=== PATIENT | female | born 1990 | race Caucasian/White ===

== ENCOUNTER → 2020-03-12 14:27 | Outpatient (CLI) | payer OTHER, SELFPAY ==
[2020-03-14 19:07] LABS: AFP, Serum 48.7 ng/mL (.); Calc Gestational Age Ultrasound (.); Estriol, Free 2.06 ng/mL (.); Inhibin A, Dimeric 94.01 pg/mL (.); Inhibin A, MoM 0.51 (.); Maternal Ethnicity Caucasian (.); Maternal Weight 128 lbs (.); Number of Fetuses No (.); OSBR Risk 1 IN 10000 (.); Results Report (.); Test Results *Screen Negative* (.); hCG, MoM 0.52 (.); hCG, Serum 15917 mIU/mL (.)
== END ==
PROVIDERS: PCP Family Medicine; Referring Provider Family Medicine; Visit Provider Family Medicine
DX: Z34.82 Encounter for supervision of other normal pregnancy, second trimester (principal); Z3A.18 18 weeks gestation of pregnancy
CPT/HCPCS: 36415; 82105; 82677; 84702; 86336

== ENCOUNTER → 2020-03-26 11:54 | Outpatient (CLI) | payer OTHER, SELFPAY ==
--- NOTE | 2020-03-26 11:55 | DI.US.S_ITS ---
PROCEDURE: US OB >= 14 WEEKS FETUS INDICATIONS: anatomic survey OUTSIDE/PRIOR DATING DATA: Last menstrual period (LMP): Unknown . LMP-based estimated date of delivery (KAVITA): Unknown . First dating scan (date and location): 03/26/2020 . Estimated date of delivery (KAVITA) from first dating scan: 08/10/2020 . TECHNIQUE: Real-time scanning was performed of the fetus, with image documentation and biometric measurements. Endovaginal scanning: Not performed COMPARISON: None. FINDINGS: General: A single living intrauterine gestation is present. Presentation: Variable, vertex and transverse. Placenta: Placental position is fundal and anterior, without previa. Amniotic fluid index: 12.1 cm, normal range is 5-24 cm. heart rate: 150 beats per minute. Maternal cervical canal: 5.0 cm long. Normal lower limit is 2.5 cm. biometrics: Biparietal diameter: 4.8 centimeters, 20 weeks 4 days Head circumference: 17.9 centimeters, 20 weeks 2 days Abdominal circumference: 16.1 centimeters, 21 weeks 2 days Femur length: 3.1 centimeters, 19 weeks 5 days Estimated gestational age from initial scan: not applicable. Composite gestational age from present scan: 20 weeks 3 days Estimated weight: 360 grams, within normal limits Anatomic survey: Neuro: Ventricles are non-dilated at less than 10 mm. Cisterna magna is normal at 3-11 mm. Cerebellum is normal in size and morphology. Nuchal skin fold: Normal at less than 6 mm between 14-21 weeks gestational age. Face: Nose and lips, facial profile are normal. Spine: No evidence for spina bifida. Heart: 4-chambered heart is present, with normal ventricular outflow tracts. Diaphragm: Diaphragm is intact. Stomach: Left-sided stomach is present. Kidneys: No hydronephrosis. Normal is less than 5 mm in 2nd trimester, less than 7 mm in 3rd trimester. Cord: 3-vessel cord has orthotopic insertion. Bladder: Normal in size. Extremities: All 4 extremities identified. IMPRESSION: Normal anatomic survey. Dictated by: Philip Ch M.D. on 03/26/2020 at 14:53 Approved by: Philip Ch M.D. on 03/26/2020 at 14:58
== END ==
PROVIDERS: PCP Family Medicine; Referring Provider Family Medicine; Visit Provider Family Medicine
DX: Z34.82 Encounter for supervision of other normal pregnancy, second trimester (principal); Z3A.20 20 weeks gestation of pregnancy
CPT/HCPCS: 76811

== ENCOUNTER → 2020-05-10 09:44 | Outpatient (CLI) | payer OTHER, SELFPAY ==
[2020-05-10 11:07] LABS: Hematocrit 30.1 % (36-46); Hemoglobin 9.8 g/dL (12.0-16.0)
[2020-05-10 11:51] LABS: GTT (PREG) 1 Hour PP 50gm Dose 168 mg/dL (76-139)
== END ==
PROVIDERS: PCP Family Medicine; Referring Provider Family Medicine; Visit Provider Family Medicine
DX: Z34.82 Encounter for supervision of other normal pregnancy, second trimester (principal); Z3A.26 26 weeks gestation of pregnancy
CPT/HCPCS: 36415; 82950; 85014; 85018

== ENCOUNTER → 2020-05-16 06:56 | Outpatient (CLI) | payer OTHER, SELFPAY ==
[2020-05-16 09:31] LABS: Glucose Fasting Gestational 71 mg/dL (76-95)
[2020-05-16 09:31] LABS: Glucose 1 Hour Gest 102 mg/dL (76-180)
[2020-05-16 10:23] LABS: Glucose Tol Interp,Gestational INTERPRETATION
[2020-05-16 10:44] LABS: Glucose 2 Hour Gest 97 mg/dL (76-155)
[2020-05-16 13:15] LABS: Glucose 3 Hour Gest 43 mg/dL (76-140)
== END ==
PROVIDERS: PCP Family Medicine; Referring Provider Family Medicine; Visit Provider Family Medicine
DX: Z34.90 Encounter for supervision of normal pregnancy, unspecified, unspecified trimester (principal); R73.09 Other abnormal glucose
CPT/HCPCS: 36415; 82951; 82952